=== PATIENT | male | born 1990 | race Two or more races ===

== ENCOUNTER 2018-09-22 09:07 | Emergency (ER) | payer OTHER ==
[~2018-09-22] VITALS: Ht 180.3 cm; Wt 176.7 kg
[~2018-09-22 09:07] MED LIST: CIPR-230 PO; CLON0.1T PO
[2018-09-22 09:40] LABS: BASOPHILS # (AUTO) 0.1 X10'3 (0-0.2); BASOPHILS % (AUTO) 1.2 % (0-1); EOSINOPHILS # (AUTO) 0.4 X10'3 (0-0.9); EOSINOPHILS % (AUTO) 5.1 % (0-6); HEMATOCRIT 31.5 % (42.0-52.0); HEMOGLOBIN 10.4 g/dl (14.0-17.9); LYMPHOCYTES # (AUTO) 2.1 X10'3 (1.1-4.8); LYMPHOCYTES % (AUTO) 28.3 % (21-51); MEAN CORPUSCULAR HEMOGLOBIN 27.9 PG (27.0-31.0); MEAN CORPUSCULAR VOLUME 84.5 FL (78-98); MEAN PLATELET VOLUME 8.1 FL (7.4-10.4); MONOCYTES # (AUTO) 1.1 X10'3 (0-0.9); MONOCYTES % (AUTO) 14.8 % (2-12); NEUTROPHILS # (AUTO) 3.8 X10'3 (1.8-7.7); NEUTROPHILS % (AUTO) 50.6 % (42-75); PLATELET COUNT 319 X10'3 (140-440); RED BLOOD COUNT 3.73 X10'6 (4.70-6.10); RED CELL DISTRIBUTION WIDTH 14.1 % (11.5-14.5); WHITE BLOOD COUNT 7.5 X10'3 (4.5-11.0)
[2018-09-22 09:49] LABS: PARTIAL THROMBOPLASTIN TIME 27 SECONDS (22-32); PROTHROMBIN TIME 9.8 SECONDS (9.0-12.0)
[2018-09-22 09:57] LABS: ALANINE AMINOTRANSFERASE 14 U/L (12-78); ALBUMIN 1.4 G/DL (3.4-5.0); ALBUMIN/GLOBULIN RATIO 0.4 (1.1-1.5); ALKALINE PHOSPHATASE 37 IU/L (46-116); ANION GAP 9 (8-16); ASPARTATE AMINO TRANSFERASE 18 U/L (10-37); BILIRUBIN,TOTAL 0.1 MG/DL (0.1-1.0); BLOOD UREA NITROGEN 40 MG/DL (7-18); BUN/CREATININE RATIO 18.5 (5.4-32.0); CALCIUM 7.3 MG/DL (8.5-10.1); CHLORIDE 106 MMOL/L (99-107); CREATININE 2.16 MG/DL (0.60-1.10); GLUCOSE 94 MG/DL (70-104); POTASSIUM 4.5 MMOL/L (3.5-5.1); SODIUM 141 MMOL/L (135-145); TOTAL PROTEIN 4.7 G/DL (6.4-8.2); eGFR 37 ML/MIN
[2018-09-22] MEDS ORDERED: normal saline 1000ml 1,000 ML IV ONE (11:45)
[2018-09-22] MEDS ORDERED: diphenhydrAMINE 50 mg/ml inj IV ONE (11:45)
[2018-09-22] MEDS ORDERED: haloperidol lactate 5mg/ml inj IM ONE (11:45)
[2018-09-22] MEDS ORDERED: furosemide 20MG tablet PO ONE (12:20)
[2018-09-22 12:43] VITALS: BP 184/89
== END 2018-09-22 12:49 | disposition home or self-care (01) ==
LOC: ER 09:07
DX: I13.0 Hypertensive heart and chronic kidney disease with heart failure and stage 1 through stage 4 chronic kidney disease, or unspecified chronic kidney disease (principal); N18.3 Chronic kidney disease, stage 3 (moderate); I50.9 Heart failure, unspecified; R06.02 Shortness of breath; R06.2 Wheezing
CPT/HCPCS: 36415; 71045; 80053; 83880; 84484; 85025; 85610; 85730; 93005; 93306; 99285

== ENCOUNTER 2018-11-01 11:02 | Day surgery (SDC) | payer MEDICAID ==
[2018-10-28 15:19] LABS: BASOPHILS # (AUTO) 0.1 X10'3 (0-0.2); BASOPHILS % (AUTO) 1.2 % (0-1); EOSINOPHILS # (AUTO) 0.5 X10'3 (0-0.9); EOSINOPHILS % (AUTO) 6.1 % (0-6); HEMATOCRIT 32.1 % (42.0-52.0); HEMOGLOBIN 10.7 g/dl (14.0-17.9); LYMPHOCYTES # (AUTO) 2.3 X10'3 (1.1-4.8); LYMPHOCYTES % (AUTO) 29.6 % (21-51); MEAN CORPUSCULAR HEMOGLOBIN 28.3 PG (27.0-31.0); MEAN CORPUSCULAR HGB CONC 33.5 % (33.0-36.5); MEAN CORPUSCULAR VOLUME 84.4 FL (78-98); MEAN PLATELET VOLUME 8.1 FL (7.4-10.4); MONOCYTES # (AUTO) 1.1 X10'3 (0-0.9); MONOCYTES % (AUTO) 13.6 % (2-12); NEUTROPHILS # (AUTO) 3.9 X10'3 (1.8-7.7); NEUTROPHILS % (AUTO) 49.5 % (42-75); PLATELET COUNT 305 X10'3 (140-440); RED CELL DISTRIBUTION WIDTH 13.9 % (11.5-14.5); WHITE BLOOD COUNT 7.8 X10'3 (4.5-11.0)
[2018-10-28 15:21] LABS: CLARITY,URINE CLEAR (Clear); COLOR,URINE YELLOW (Yellow); GLUCOSE, URINE NEGATIVE (Neg); KETONES,URINE NEGATIVE (Neg); LEUKOCYTE ESTERASE ,URINE NEGATIVE (Neg); NITRITES, URINE NEGATIVE (Neg); OCCULT BLOOD,URINE LARGE (Neg); PH,URINE 5.5 (4.8-8.0); PROTEIN,URINE >=300 mg/dl (Neg); UROBILINOGEN,URINE 0.2 E.U/dL (0.2-1.0)
[2018-10-28 15:23] LABS: UA COLLECTION TYPE NON-SPECIFIED
[2018-10-28 15:35] LABS: ALANINE AMINOTRANSFERASE 14 U/L (12-78); ALBUMIN 1.3 G/DL (3.4-5.0); ALBUMIN/GLOBULIN RATIO 0.4 (1.1-1.5); ALKALINE PHOSPHATASE 28 IU/L (46-116); ANION GAP 6 (8-16); ASPARTATE AMINO TRANSFERASE 19 U/L (10-37); BILIRUBIN,TOTAL 0.3 MG/DL (0.1-1.0); BLOOD UREA NITROGEN 55 MG/DL (7-18); BUN/CREATININE RATIO 21.5 (5.4-32.0); CALCIUM 7.7 MG/DL (8.5-10.1); CHLORIDE 108 MMOL/L (99-107); CREATININE 2.56 MG/DL (0.60-1.10); GLUCOSE 90 MG/DL (70-104); POTASSIUM 4.3 MMOL/L (3.5-5.1); SODIUM 139 MMOL/L (135-145); TOTAL CARBON DIOXIDE 24.8 MMOL/L (24-32); TOTAL PROTEIN 4.2 G/DL (6.4-8.2); eGFR 31 ML/MIN
[2018-10-28 16:00] LABS: PARTIAL THROMBOPLASTIN TIME 27 SECONDS (22-32); PROTHROMBIN TIME 9.8 SECONDS (9.0-12.0)
[2018-10-28 16:03] LABS: WBC,URINE 20-30 /HPF (0-4)
[2018-10-28 16:04] LABS: BACTERIA,URINE 1+ /HPF (Neg); RBC,URINE 50-100 /HPF (0-2)
[2018-10-28 16:05] LABS: SQUAMOUS EPITHELIAL CELL,UR FEW /LPF (FEW)
[2018-10-28 16:06] LABS: RED BLOOD CELL CASTS,URINE 0-3 /LPF (NEGATIVE)
[2018-11-01] VITALS (22 sets, daily range): BP systolic 120–187; BP diastolic 57–93
[~2018-11-01] VITALS: Ht 177.8 cm; Wt 183.6 kg
[~2018-11-01 11:02] MED LIST changes: -CIPR-230 PO; +LIDOcaine 1% 30ml preserv. free vial IJ ONE; +MIDAZolam 5mg/ml 2ml vial IV ONE
[2018-11-01] MEDS ORDERED: MIDAZolam 5mg/ml 2ml vial IV ONE (11:28)
[2018-11-01] MEDS ORDERED: CLON-529 PO (11:52)
[2018-11-01] MEDS ORDERED: OLME1TAB21 PO (11:52)
[2018-11-01] MEDS ORDERED: NEBI5TAB10 PO (11:52)
[2018-11-01] MEDS ORDERED: normal saline 1000ml 1,000 ML IV SCH (12:15)
[2018-11-01] MEDS ORDERED: cloNIDine 0.1 mg tablet PO ONE ×2 (13:16→17:15)
[2018-11-01] MEDS ORDERED: hydrALAZINE 20mg/ml inj. IV ONE ×3 (13:20→14:35)
[2018-11-01] MEDS ORDERED: acetaminophen w/codeine (30MG) #3 tablet PO PRN (16:00)
[2018-11-01 16:47] LABS: HEMATOCRIT 31.1 % (42.0-52.0); HEMOGLOBIN 10.1 g/dl (14.0-17.9); MEAN CORPUSCULAR HEMOGLOBIN 27.6 PG (27.0-31.0); MEAN CORPUSCULAR HGB CONC 32.6 % (33.0-36.5); MEAN CORPUSCULAR VOLUME 84.6 FL (78-98); MEAN PLATELET VOLUME 8.4 FL (7.4-10.4); PLATELET COUNT 279 X10'3 (140-440); RED BLOOD COUNT 3.67 X10'6 (4.70-6.10); WHITE BLOOD COUNT 6.8 X10'3 (4.5-11.0)
[2018-11-01 18:09] LABS: HEMATOCRIT 32.3 % (42.0-52.0); HEMOGLOBIN 10.7 g/dl (14.0-17.9); MEAN CORPUSCULAR HEMOGLOBIN 27.7 PG (27.0-31.0); MEAN CORPUSCULAR HGB CONC 33.1 % (33.0-36.5); MEAN CORPUSCULAR VOLUME 83.7 FL (78-98); MEAN PLATELET VOLUME 8.1 FL (7.4-10.4); PLATELET COUNT 294 X10'3 (140-440); RED BLOOD COUNT 3.86 X10'6 (4.70-6.10); RED CELL DISTRIBUTION WIDTH 14.1 % (11.5-14.5); WHITE BLOOD COUNT 7.6 X10'3 (4.5-11.0)
== END 2018-11-01 19:05 | disposition home or self-care (01) ==
LOC: SSTAY O 11:02
PROVIDERS: ATTEND Internal Medicine Critical Care Medicine
DX: I12.9 Hypertensive chronic kidney disease with stage 1 through stage 4 chronic kidney disease, or unspecified chronic kidney disease (principal); E11.22 Type 2 diabetes mellitus with diabetic chronic kidney disease; N18.3 Chronic kidney disease, stage 3 (moderate); D89.89 Other specified disorders involving the immune mechanism, not elsewhere classified; E66.01 Morbid (severe) obesity due to excess calories; E78.00 Pure hypercholesterolemia, unspecified; I48.91 Unspecified atrial fibrillation; D63.1 Anemia in chronic kidney disease; N39.0 Urinary tract infection, site not specified; Z72.89 Other problems related to lifestyle; Z68.43 Body mass index [BMI] 50.0-59.9, adult; Z68.41 Body mass index [BMI] 40.0-44.9, adult; Z87.891 Personal history of nicotine dependence; Z79.899 Other long term (current) drug therapy
CPT/HCPCS: 36415; 50200; 76942; 80053; 81001; 85025; 85027; 85576; 85610; 85730; 86885; 86900; 86901; 86920; 87088; 99152; 99153; J0360; J2250; J3490; J7030

== ENCOUNTER 2020-05-23 23:20 | Emergency (ER) | payer OTHER ==
[~2020-05-23] VITALS: Ht 177.8 cm; Wt 102.7 kg
[~2020-05-23 23:20] MED LIST changes: +CLON-529 PO; -CLON0.1T PO; -LIDOcaine 1% 30ml preserv. free vial IJ ONE; -MIDAZolam 5mg/ml 2ml vial IV ONE; +NEBI5TAB10 PO; +OLME1TAB21 PO
[2020-05-23 23:34] VITALS: BP 153/96
== END 2020-05-24 00:41 | disposition home or self-care (01) ==
LOC: ER 23:20
DX: S50.811A Abrasion of right forearm, initial encounter (principal); Z77.21 Contact with and (suspected) exposure to potentially hazardous body fluids; Z72.89 Other problems related to lifestyle; Z79.899 Other long term (current) drug therapy; W50.4XXA Accidental scratch by another person, initial encounter; Y93.89 Activity, other specified; Y99.0 Civilian activity done for income or pay; Y92.238 Other place in hospital as the place of occurrence of the external cause
CPT/HCPCS: 99281

== ENCOUNTER 2020-11-20 19:33 | Inpatient (IN) | payer BC, OTHER ==
[~2020-11-20] VITALS: Ht 180.3 cm; Wt 122.7 kg
[2020-11-20 20:33] LABS: HEMOGLOBIN 10.4 g/dl (14.0-17.9); MEAN CORPUSCULAR HEMOGLOBIN 27.4 PG (27.0-31.0); MEAN PLATELET VOLUME 8.2 FL (7.4-10.4); MONOCYTES # (AUTO) 1.6 X10'3 (0-0.9); WHITE BLOOD COUNT 2.4 X10'3 (4.5-11.0)
[2020-11-20 20:35] LABS: BASOPHILS % (AUTO) 0 % (0-1); EOSINOPHILS % (AUTO) 0.8 % (0-6); HEMATOCRIT 31.5 % (42.0-52.0); LYMPHOCYTES # (AUTO) 0.7 X10'3 (1.1-4.8); LYMPHOCYTES % (AUTO) 29.2 % (21-51); MEAN CORPUSCULAR HGB CONC 32.9 g/dL (33.0-36.5); MEAN CORPUSCULAR VOLUME 83.1 FL (78-98); MONOCYTES % (AUTO) 67.6 % (2-12); NEUTROPHILS # (AUTO) 0.1 X10'3 (1.8-7.7); NEUTROPHILS % (AUTO) 2.4 % (42-75); PLATELET COUNT 202 X10'3 (140-440); RED BLOOD COUNT 3.79 X10'6 (4.70-6.10); RED CELL DISTRIBUTION WIDTH 12.9 % (11.5-14.5)
[2020-11-20] MEDS ORDERED: ketorolac trometh. 30mg/ml inj. IV ONE (20:40)
[2020-11-20] MEDS ORDERED: normal saline 1000ml 1,000 ML IV ONE ×2 (20:40→21:25)
[2020-11-20 20:46] LABS: ALANINE AMINOTRANSFERASE 24 U/L (12-78); ALBUMIN 2.6 G/DL (3.4-5.0); ALBUMIN/GLOBULIN RATIO 0.6 (1.1-1.5); ALKALINE PHOSPHATASE 46 IU/L (46-116); ANION GAP 14 (8-16); ASPARTATE AMINO TRANSFERASE 19 U/L (10-37); BILIRUBIN,TOTAL 0.3 MG/DL (0.1-1.0); BLOOD UREA NITROGEN 32 MG/DL (7-18); BUN/CREATININE RATIO 8.6 (5.4-32.0); CALCIUM 8.5 MG/DL (8.5-10.1); CHLORIDE 98 MMOL/L (99-107); CREATININE 3.71 MG/DL (0.60-1.10); GLUCOSE 125 MG/DL (70-104); POTASSIUM 4.1 MMOL/L (3.5-5.1); SODIUM 132 MMOL/L (135-145); TOTAL CARBON DIOXIDE 20.4 MMOL/L (24-32); TOTAL PROTEIN 6.9 G/DL (6.4-8.2); eGFR 20 ML/MIN
[2020-11-20 21:08] LABS: TROPONIN I < 0.04 NG/ML (0.0-0.05)
[2020-11-20 21:22] LABS: C-REACTIVE PROTEIN 26.94 MG/DL (0.0-0.5)
[2020-11-20 21:26] LABS: CLARITY,URINE CLEAR (Clear); COLOR,URINE YELLOW (Yellow); GLUCOSE, URINE NEGATIVE (Neg); KETONES,URINE NEGATIVE (Neg); LEUKOCYTE ESTERASE ,URINE NEGATIVE (Neg); NITRITES, URINE NEGATIVE (Neg); OCCULT BLOOD,URINE LARGE (Neg); PH,URINE 5.5 (4.8-8.0); PROTEIN,URINE 100 mg/dl (Neg); UROBILINOGEN,URINE 0.2 E.U/dL (0.2-1.0)
[2020-11-20 21:27] LABS: UA COLLECTION TYPE URINAL
[2020-11-20 21:36] LABS: BACTERIA,URINE 3+ /HPF (Neg); SQUAMOUS EPITHELIAL CELL,UR FEW /LPF (FEW)
[2020-11-20 21:37] LABS: FINE GRANULAR CAST 0-3 /LPF (NEGATIVE)
[2020-11-20 21:48] LABS: MONOTEST NEGATIVE (Neg)
[2020-11-20 22:10] LABS: TOTAL CELLS COUNTED 100
[2020-11-20 22:11] LABS: PLATELET ESTIMATE NORMAL
[2020-11-20 22:13] LABS: ELLIPTOCYTES FEW; TEAR DROP CELLS FEW
[2020-11-20] MEDS ORDERED: CefTRIAXone/D5W-Rocephin 1gm 50 ML IV ONE (22:25)
[2020-11-20] MEDS ORDERED: IRBE150T51 PO (23:39)
[2020-11-20] MEDS ORDERED: MYCO360T3 PO (23:39)
[2020-11-20] MEDS ORDERED: HYDR200T84 PO (23:39)
[2020-11-20] MEDS ORDERED: FAMO-128 PO (23:39)
[2020-11-20] MEDS ORDERED: CHOL100025 PO (23:39)
[2020-11-20] MEDS ORDERED: PRED5TAB PO (23:39)
[2020-11-20] MEDS ORDERED: CALC300T4 PO (23:39)
[2020-11-21] VITALS (7 sets, daily range): BP systolic 133–169; BP diastolic 62–79
[2020-11-21] MEDS ORDERED: mag hydrox/Alum hydrox/simeth 30ml oral suspension PO PRN (00:20)
[2020-11-21] MEDS ORDERED: potassium Cl 20 mEq SR tablet PO PRN ×2 (00:20)
[2020-11-21] MEDS ORDERED: magnesium 2GM in 50ml NS 50 ML IV PRN (00:20)
[2020-11-21] MEDS ORDERED: magnesium Cl slow-release 64mg tablet PO PRN (00:20)
[2020-11-21] MEDS ORDERED: acetaminophen 325mg tablet PO PRN ×2 (00:20)
[2020-11-21] MEDS ORDERED: magnesium 4gm in 100ml NS 100 ML IV PRN (00:20)
[2020-11-21] MEDS ORDERED: magnesium hydroxide 30ml (MOM) UD suspension PO PRN (00:20)
[2020-11-21] MEDS ORDERED: potassium Cl 40MEQ/1/2NS 520ml 520 ML IV PRN ×2 (00:20)
[2020-11-21] MEDS: normal saline 1000ml 1,000 ML IV SCH ×4 (01:38→23:18)
--- NOTE | 2020-11-21 01:45 | NUR ---
Patient in room PCU 3019. I have received report from BRIEN Barger and had the opportunity to ask questions and assume patient care. Patient arrived on floor via wheelchair from ED. No signs of distress. Safety measures in place, bed in low and locked position. Call light and personal items within reach. Will continue to monitor throughout shift.
[2020-11-21] MEDS: HYDROcodone/acetaminophen 5mg/325mg tablet PO PRN (01:58)
--- NOTE | 2020-11-21 06:20 | NUR ---
Received report from Nandini preceptor
--- NOTE | 2020-11-21 06:21 | NUR ---
Problems reprioritized. Patient report given, questions answered & plan of care reviewed with BRIEN Delatorre. VSS. Care plan followed, safety measures in place. Bed in low and locked position. Call light and personal items within reach. Will continue to monitor for remainder of shift.
--- NOTE | 2020-11-21 06:30 | NUR ---
Patient in room PCU 3019. I have received report from BRIEN Bell and had the opportunity to ask questions and assume patient care. Patient awake in bed and in no acute distress.
[2020-11-21] MEDS: K and/or MAG REPLACEMENT MC SCH ×2 (08:00→19:06)
[2020-11-21] MEDS: heparin, porcine 5000 units/ml vial SQ SCH ×2 (08:00→20:00)
[2020-11-21] MEDS ORDERED: hydroxychloroquine 200mg tablet PO SCH (08:00)
[2020-11-21] MEDS: predniSONE 5mg tablet PO SCH (08:13)
[2020-11-21] MEDS: cloNIDine 0.1 mg tablet PO SCH ×3 (08:13→21:16)
[2020-11-21] MEDS: famotidine 20mg tablet PO SCH (08:13)
--- NOTE | 2020-11-21 09:58 | NUR ---
Orders put in for CBC and BMP put in for today per Dr. Elliott.
[2020-11-21 10:31] LABS: ANION GAP 6 (8-16); BLOOD UREA NITROGEN 37 MG/DL (7-18); BUN/CREATININE RATIO 10.9 (5.4-32.0); CALCIUM 8.1 MG/DL (8.5-10.1); CHLORIDE 106 MMOL/L (99-107); CREATININE 3.38 MG/DL (0.60-1.10); EOSINOPHILS % (AUTO) 1.3 % (0-6); GLUCOSE 114 MG/DL (70-104); HEMOGLOBIN 9.6 g/dl (14.0-17.9); NEUTROPHILS # (AUTO) 0.1 X10'3 (1.8-7.7); SODIUM 137 MMOL/L (135-145); TOTAL CARBON DIOXIDE 24.9 MMOL/L (24-32); eGFR 22 ML/MIN
[2020-11-21 10:33] LABS: BASOPHILS % (AUTO) 0.6 % (0-1); HEMATOCRIT 28.9 % (42.0-52.0); LYMPHOCYTES # (AUTO) 1.1 X10'3 (1.1-4.8); LYMPHOCYTES % (AUTO) 34.1 % (21-51); MEAN CORPUSCULAR HEMOGLOBIN 27.7 PG (27.0-31.0); MEAN CORPUSCULAR HGB CONC 33.2 g/dL (33.0-36.5); MEAN CORPUSCULAR VOLUME 83.4 FL (78-98); MEAN PLATELET VOLUME 8.1 FL (7.4-10.4); MONOCYTES % (AUTO) 59.6 % (2-12); NEUTROPHILS % (AUTO) 4.4 % (42-75); PLATELET COUNT 210 X10'3 (140-440); RED BLOOD COUNT 3.46 X10'6 (4.70-6.10); WHITE BLOOD COUNT 3.4 X10'3 (4.5-11.0)
--- NOTE | 2020-11-21 10:36 | NUR ---
Paged Dr. Elliott regarding patient's home medications to be reviewed. PAGER ID: [phone] MESSAGE: [phone]. Todd Damon. Can you please review patient's medications so that he may be restarted on the mycophenolate? Thank you. Nandini TESFAYE x [phone]
[2020-11-21 10:40] LABS: ALBUMIN 2.2 G/DL (3.4-5.0)
[2020-11-21 12:15] LABS: PLATELET ESTIMATE NORMAL; TOTAL CELLS COUNTED 100
[2020-11-21 12:18] LABS: ACANTHOCYTES FEW; BURR CELLS 1+; ELLIPTOCYTES 1+; POIKILOCYTOSIS 1+; ROULEAUX 1+
[2020-11-21] MEDS: morphine 2 MG/ML inj. syringe IV PRN ×2 (13:57→21:15)
[2020-11-21 16:19] LABS: CLARITY,URINE SLIGHTLY CLOUDY (Clear); COLOR,URINE YELLOW (Yellow); GLUCOSE, URINE NEGATIVE (Neg); KETONES,URINE NEGATIVE (Neg); LEUKOCYTE ESTERASE ,URINE TRACE (Neg); NITRITES, URINE NEGATIVE (Neg); OCCULT BLOOD,URINE LARGE (Neg); PH,URINE 5.5 (4.8-8.0); PROTEIN,URINE 100 mg/dl (Neg); UROBILINOGEN,URINE 0.2 E.U/dL (0.2-1.0)
[2020-11-21 16:20] LABS: TOTAL PROTEIN,URINE RANDOM 128.1 MG/DL
[2020-11-21 16:25] LABS: UA COLLECTION TYPE CLN CATCH MIDSTREAM
[2020-11-21 16:26] LABS: SQUAMOUS EPITHELIAL CELL,UR FEW /LPF (FEW)
[2020-11-21 16:28] LABS: HYALINE CASTS 0-3 /LPF (NEGATIVE)
[2020-11-21 16:30] LABS: BACTERIA,URINE 1+ /HPF (Neg); RBC,URINE 20-50 /HPF (0-2)
[2020-11-21 16:32] LABS: WBC,URINE 0-4 /HPF (0-4)
[2020-11-21 17:11] LABS: UA EOSINOPHILS NO EOS /HPF
--- NOTE | 2020-11-21 18:02 | NUR ---
Orders to D/C plaqueril and mycophenolate put in per Dr. Elliott for the bone marrow biopsy to be done.
--- NOTE | 2020-11-21 18:10 | NUR ---
Problems reprioritized. Patient report given, questions answered & plan of care reviewed with BRIEN French. Patient stable at transfer of care.
--- NOTE | 2020-11-21 18:12 | NUR ---
[place] documentation: I have reviewed and agree with all interventions, assessments performed and documented by BRIEN Jason.
--- NOTE | 2020-11-21 18:12 | NUR ---
[place] Medication Administration: For this medication-pass time frame, all medication were reviewed, dispensed, administered and documented per hospital policy by BRIEN Jason.
--- NOTE | 2020-11-21 19:14 | NUR ---
Patient in room PCU 3019. I have received report from Nandini TESFAYE and had the opportunity to ask questions and assume patient care.
[2020-11-21] MEDS ORDERED: mycophenolate sod SR tablet 180 MG TABLET.DR PO SCH (20:00)
[2020-11-21] MEDS: temazepam 15mg capsule PO PRN (21:14)
[2020-11-21] MEDS ORDERED: CefTRIAXone/D5W-Rocephin 1gm 50 ML IV SCH (22:00)
[2020-11-22] MEDS ORDERED: diphenhydrAMINE 25mg capsule PO ONE (01:10)
[2020-11-22] MEDS ORDERED: Melatonin 3mg tablet PO PRN (01:10)
[2020-11-22] MEDS: normal saline 1000ml 1,000 ML IV SCH ×2 (04:42→16:14)
--- NOTE | 2020-11-22 05:19 | NUR ---
Pt refused 0200 vitals.
[2020-11-22 06:00] VITALS: BP 166/90
--- NOTE | 2020-11-22 06:24 | NUR ---
Problems reprioritized. Patient report given, questions answered & plan of care reviewed with Farhana TESFAYE.
--- NOTE | 2020-11-22 06:30 | NUR ---
Patient in room PCU 3019. I have received report from RBIEN Yeung and had the opportunity to ask questions and assume patient care.
[2020-11-22 06:32] LABS: BASOPHILS # (AUTO) 0.1 X10'3 (0-0.2); BASOPHILS % (AUTO) 1.5 % (0-1); EOSINOPHILS # (AUTO) 0.2 X10'3 (0-0.9); HEMOGLOBIN 8.9 g/dl (14.0-17.9); MEAN CORPUSCULAR VOLUME 83.9 FL (78-98); NEUTROPHILS # (AUTO) 0.2 X10'3 (1.8-7.7); RED CELL DISTRIBUTION WIDTH 13.1 % (11.5-14.5)
[2020-11-22 06:34] LABS: EOSINOPHILS % (AUTO) 4.1 % (0-6); HEMATOCRIT 26.5 % (42.0-52.0); LYMPHOCYTES % (AUTO) 51.3 % (21-51); MEAN CORPUSCULAR HEMOGLOBIN 28.1 PG (27.0-31.0); MEAN CORPUSCULAR HGB CONC 33.5 g/dL (33.0-36.5); MONOCYTES # (AUTO) 1.4 X10'3 (0-0.9); MONOCYTES % (AUTO) 37.1 % (2-12); PLATELET COUNT 222 X10'3 (140-440); RED BLOOD COUNT 3.15 X10'6 (4.70-6.10); WHITE BLOOD COUNT 3.9 X10'3 (4.5-11.0)
[2020-11-22 06:45] LABS: ALANINE AMINOTRANSFERASE 28 U/L (12-78); ALBUMIN/GLOBULIN RATIO 0.5 (1.1-1.5); ALKALINE PHOSPHATASE 38 IU/L (46-116); ANION GAP 10 (8-16); ASPARTATE AMINO TRANSFERASE 15 U/L (10-37); BILIRUBIN,TOTAL 0.1 MG/DL (0.1-1.0); BLOOD UREA NITROGEN 39 MG/DL (7-18); BUN/CREATININE RATIO 13.4 (5.4-32.0); CHLORIDE 109 MMOL/L (99-107); CREATININE 2.91 MG/DL (0.60-1.10); GLUCOSE 107 MG/DL (70-104); MAGNESIUM 2.4 MG/DL (1.5-2.4); POTASSIUM 4.4 MMOL/L (3.5-5.1); SODIUM 140 MMOL/L (135-145); TOTAL CARBON DIOXIDE 20.8 MMOL/L (24-32); TOTAL PROTEIN 5.7 G/DL (6.4-8.2); eGFR 26 ML/MIN
[2020-11-22 07:21] LABS: TOTAL CELLS COUNTED 100
[2020-11-22 07:22] LABS: PLATELET ESTIMATE NORMAL
[2020-11-22 07:23] LABS: BURR CELLS 2+; ELLIPTOCYTES 1+; ROULEAUX 1+
[2020-11-22] MEDS: K and/or MAG REPLACEMENT MC SCH ×2 (08:00→20:29)
[2020-11-22] MEDS: heparin, porcine 5000 units/ml vial SQ SCH ×2 (08:00→20:00)
[2020-11-22] MEDS: cloNIDine 0.1 mg tablet PO SCH ×3 (08:43→20:24)
[2020-11-22] MEDS: predniSONE 5mg tablet PO SCH (08:44)
[2020-11-22] MEDS: famotidine 20mg tablet PO SCH (08:44)
[2020-11-22] MEDS: vitamin D (cholecalciferol) 1,000 unit tablet PO SCH (08:45)
[2020-11-22] MEDS: HYDROcodone/acetaminophen 5mg/325mg tablet PO PRN (08:46)
[2020-11-22] MEDS: cefepime 1GM/NS ADD-VANTAGE 100 ML IV SCH ×2 (08:59→16:14)
[2020-11-22 11:00] VITALS: BP 127/79
--- NOTE | 2020-11-22 11:31 | NUR ---
notified. PAGER ID: [phone] MESSAGE: RE: Addison Damon. [phone]. Patient has large 1.5cm oral ulceration on left cheek, Was wondering if we could order an oralgel or magic mouthwash for it? Thanks. Farhana [phone].
[2020-11-22] MEDS: morphine 2 MG/ML inj. syringe IV PRN ×2 (13:45→20:24)
[2020-11-22 15:00] VITALS: BP 148/90
[2020-11-22 18:00] VITALS: BP 171/101
--- NOTE | 2020-11-22 18:20 | NUR ---
Problems reprioritized. Patient report given, questions answered & plan of care reviewed with BRIEN Velázquez.
[2020-11-23] MEDS: cefepime 1GM/NS ADD-VANTAGE 100 ML IV SCH ×2 (00:12→08:01)
[2020-11-23] MEDS: normal saline 1000ml 1,000 ML IV SCH ×2 (00:20→09:00)
[2020-11-23] MEDS: temazepam 15mg capsule PO PRN (01:05)
[2020-11-23] MEDS: HYDROcodone/acetaminophen 10/325mg tab PO PRN ×2 (01:05→13:34)
[2020-11-23 02:00] VITALS: BP 123/60
[2020-11-23] MEDS ORDERED: diphenhydrAMINE 25mg capsule PO ONE (02:20)
[2020-11-23] MEDS: morphine 2 MG/ML inj. syringe IV PRN ×2 (02:26→08:54)
--- NOTE | 2020-11-23 03:04 | NUR ---
Patient in room PCU 3019. I have received report from FRANKI TESFAYE and had the opportunity to ask questions and assume patient care. AGREE WITH FORMER ASSESSMENT
[2020-11-23 06:00] VITALS: BP 168/101
--- NOTE | 2020-11-23 06:11 | NUR ---
Problems reprioritized. Patient report given, questions answered & plan of care reviewed with Farhana TESFAYE.
--- NOTE | 2020-11-23 06:12 | NUR ---
Patient in room PCU 3019. I have received report from BRIEN Velázquez and had the opportunity to ask questions and assume patient care.
[2020-11-23 07:49] LABS: BASOPHILS # (AUTO) 0.1 X10'3 (0-0.2); BASOPHILS % (AUTO) 1.9 % (0-1); EOSINOPHILS # (AUTO) 0.2 X10'3 (0-0.9); EOSINOPHILS % (AUTO) 5.2 % (0-6); HEMATOCRIT 27.4 % (42.0-52.0); LYMPHOCYTES # (AUTO) 2.6 X10'3 (1.1-4.8); LYMPHOCYTES % (AUTO) 59.1 % (21-51); MEAN CORPUSCULAR HEMOGLOBIN 28.1 PG (27.0-31.0); MEAN CORPUSCULAR VOLUME 85.2 FL (78-98); MEAN PLATELET VOLUME 8.3 FL (7.4-10.4); MONOCYTES # (AUTO) 1.1 X10'3 (0-0.9); MONOCYTES % (AUTO) 25.6 % (2-12); NEUTROPHILS # (AUTO) 0.4 X10'3 (1.8-7.7); NEUTROPHILS % (AUTO) 8.2 % (42-75); PLATELET COUNT 312 X10'3 (140-440); RED BLOOD COUNT 3.21 X10'6 (4.70-6.10); RED CELL DISTRIBUTION WIDTH 13.4 % (11.5-14.5); WHITE BLOOD COUNT 4.4 X10'3 (4.5-11.0)
[2020-11-23] MEDS: cloNIDine 0.1 mg tablet PO SCH ×2 (07:58→13:00)
[2020-11-23] MEDS: vitamin D (cholecalciferol) 1,000 unit tablet PO SCH (07:59)
[2020-11-23] MEDS: famotidine 20mg tablet PO SCH (07:59)
[2020-11-23] MEDS: predniSONE 5mg tablet PO SCH (07:59)
[2020-11-23] MEDS: heparin, porcine 5000 units/ml vial SQ SCH (08:00)
[2020-11-23] MEDS: K and/or MAG REPLACEMENT MC SCH (08:00)
[2020-11-23 08:15] LABS: ALANINE AMINOTRANSFERASE 33 U/L (12-78); ALBUMIN 2.3 G/DL (3.4-5.0); ALBUMIN/GLOBULIN RATIO 0.6 (1.1-1.5); ALKALINE PHOSPHATASE 42 IU/L (46-116); ANION GAP 12 (8-16); BILIRUBIN,TOTAL 0.2 MG/DL (0.1-1.0); BLOOD UREA NITROGEN 33 MG/DL (7-18); CALCIUM 8.1 MG/DL (8.5-10.1); CHLORIDE 110 MMOL/L (99-107); CREATININE 2.36 MG/DL (0.60-1.10); GLUCOSE 84 MG/DL (70-104); MAGNESIUM 2.2 MG/DL (1.5-2.4); SODIUM 141 MMOL/L (135-145); TOTAL CARBON DIOXIDE 18.6 MMOL/L (24-32); TOTAL PROTEIN 6.1 G/DL (6.4-8.2); eGFR 33 ML/MIN
[2020-11-23 08:18] LABS: ASPARTATE AMINO TRANSFERASE 30 U/L (10-37); POTASSIUM 4.7 MMOL/L (3.5-5.1)
[2020-11-23 08:25] LABS: PLATELET ESTIMATE NORMAL
[2020-11-23 08:26] LABS: BURR CELLS 1+; MICROCYTOSIS 1+
[2020-11-23 11:19] LABS: FERRITIN 2084 NG/ML (26-388)
[2020-11-23 12:01] LABS: % IRON SATURATION 35 % (11-46); IRON 46 UG/DL (53-167); TOTAL IRON BINDING CAPACITY 131 UG/DL (259-388)
[2020-11-23] MEDS ORDERED: CEFD300C3 PO (13:29)
[2020-11-23] MEDS ORDERED: LIDOcaine Viscous 15ml cup MM PRN (13:40)
[2020-11-23] MEDS ORDERED: LIDO20SO16 PO (14:33)
--- NOTE | 2020-11-23 14:45 | NUR ---
Stable for discharge per md orders. New prescriptions e-scripted to pharmacy. IV discontinued with cannula intact. Wristbands cut from patient. Patient ambulated from unit to parking lot. patient seen driving private vehicle off premises.
== END 2020-11-23 14:38 | disposition home or self-care (01) | DRG 872 ==
LOC: ER 19:34 → ED HOLD 11-21 00:16 → PCU 3S 11-21 01:26
PROVIDERS: ADMIT Family Medicine; ATTEND Family Medicine
DX: A41.9 Sepsis, unspecified organism (principal); E87.1 Hypo-osmolality and hyponatremia; N39.0 Urinary tract infection, site not specified; N17.9 Acute kidney failure, unspecified; I12.9 Hypertensive chronic kidney disease with stage 1 through stage 4 chronic kidney disease, or unspecified chronic kidney disease; N18.30 Chronic kidney disease, stage 3 unspecified; D70.2 Other drug-induced agranulocytosis; T37.8X5A Adverse effect of other specified systemic anti-infectives and antiparasitics, initial encounter; D63.8 Anemia in other chronic diseases classified elsewhere; Z20.828 Contact with and (suspected) exposure to other viral communicable diseases; R19.7 Diarrhea, unspecified; Y92.89 Other specified places as the place of occurrence of the external cause
CPT/HCPCS: 36415; 71045; 80048; 80053; 81001; 82570; 82728; 83540; 83550; 83605; 83735; 84145; 84156; 84300; 84484; 85007; 85008; 85025; 85651; 86140; 86308; 87040; 87081; 87088; 87207; 87635; 93005; 99285; C9803; G0378; J0692; J0696; J1885; J2270; J7030; J7512; Q0163